=== PATIENT | female | born 1980 | race Caucasian/White ===

== ENCOUNTER 2020-04-30 04:26 | Emergency (ER) | payer MEDICAID, OTHER, SELFPAY ==
[~2020-04-30] VITALS: Ht 160 cm; Wt 166.6 kg
[2020-04-30] MEDS ORDERED: CITA40TA5 PO (04:33)
[2020-04-30 05:32] LABS: BASOPHILS % (AUTO) 1 % (0-1); EOSINOPHILS % (AUTO) 1 % (1-7); LYMPHOCYTES % (AUTO) 19 % (22-44); MEAN CORPUSCULAR HEMOGLOBIN 29.5 pg (27.0-34.8); MEAN CORPUSCULAR HGB CONC 32.8 g/dL (32.4-35.8); MEAN PLATELET VOLUME 8.2 fL (7.4-10.4); MONOCYTES % (AUTO) 5 % (2-9); NEUTROPHILS % (AUTO) 75 % (42-75); PLATELET COUNT 244 x10^3/uL (130-400); RED BLOOD COUNT 4.83 x10^6/uL (3.82-5.3); RED CELL DISTRIBUTION WIDTH 14.6 % (9.6-15.2)
[2020-04-30 05:38] LABS: ALANINE AMINOTRANSFERASE 23 U/L (12-78); ALBUMIN 3.4 g/dL (3.4-5.0); ANION GAP 8 mmol/L (5-15); CALCIUM 9.2 mg/dL (8.5-10.1); CHLORIDE 108 mmol/L (98-107); CREATININE 0.92 mg/dL (0.55-1.02)
[2020-04-30 05:43] LABS: ALKALINE PHOSPHATASE 73 U/L (45-117); BILIRUBIN,TOTAL 0.4 mg/dL (0.2-1.0); TOTAL PROTEIN 7.8 g/dL (6.4-8.2)
[2020-04-30 05:44] LABS: MD NO
--- NOTE | 2020-04-30 05:57 | NUR ---
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 STEADY UPON AMBULATION.
--- NOTE | 2020-04-30 06:05 | NUR ---
THIS IS A 39Y F THAT COMES IN FOR BILAT UPPER QUAD PAIN, PT STS THIS HAS BEEN HAPPENING SINCE YESTERDAY ALSO STS "I'M HAVING A GALLBLADDER ATTACK" PT STS MIGHT HAVE GALLSTONES BUT NOT SURE. PT CONNECTED TO MONITORING
[2020-04-30] MEDS ORDERED: ONDANSETRON 2MG/ML, 2ML ONE (06:11)
[2020-04-30] MEDS ORDERED: MORPHINE SULFATE 4 MG/ML, 1ML ONE (06:12)
[2020-04-30] MEDS ORDERED: SODIUM CHLORIDE 0.9% 1,000 ML IV ONE (06:30)
[2020-04-30] MEDS ORDERED: MORPHINE SULFATE 4 MG/ML, 1ML IVPush PRN (06:30)
[2020-04-30] MEDS ORDERED: ONDANSETRON 2MG/ML, 2ML IVPush ONE (06:30)
--- NOTE | 2020-04-30 06:47 | NUR ---
US COMPLETE AT THIS TIME
[2020-04-30 07:47] VITALS: BP 143/91
== END 2020-04-30 07:50 | disposition home or self-care (01) ==
LOC: ED 06:15
DX: K80.20 Calculus of gallbladder without cholecystitis without obstruction (principal); R10.13 Epigastric pain; R11.2 Nausea with vomiting, unspecified
CPT/HCPCS: 36415; 76700; 80053; 83690; 84703; 85025; 96374; 96375; 99284; J2270; J2405; J7030